=== PATIENT | female | born 1935 | race Caucasian/White ===

== ENCOUNTER 2023-10-25 20:25 | Emergency (ER) | payer MEDICARE, OTHER | END 2023-10-26 00:18 | disposition home or self-care (01) | LOC: JD.ED 20:25 | DX: M79.651 Pain in right thigh (principal); I10 Essential (primary) hypertension; Z90.710 Acquired absence of both cervix and uterus; Z79.899 Other long term (current) drug therapy; Z91.048 Other nonmedicinal substance allergy status | CPT/HCPCS: 73552-26-RT; 73552-RT; 93971-26-RT; 93971-RT; 99284 ==